=== PATIENT | female | born 1930 | race Caucasian/White ===

== ENCOUNTER 2020-06-11 10:30 | Emergency (ER) | payer OTHER, BC ==
[2020-06-11 10:35] VITALS: BP 146/67; PULSE 66; TEMP 98.6; BMI 25.0
[2020-06-11] MEDS ORDERED: DIPHTH,PERTUSS(ACELL),TET 0.5 ML DISP.SYRIN IM ONE ×2 (10:48→10:51)
== END 2020-06-11 10:57 | disposition home or self-care (01) ==
LOC: FER 10:30
PROC: 3E0234Z Introduction of Serum, Toxoid and Vaccine into Muscle, Percutaneous Approach (ICD-10-PCS; principal; 2020-06-11)
DX: S61.212A Laceration without foreign body of right middle finger without damage to nail, initial encounter (principal)
CPT/HCPCS: 90715; 99284-25